=== PATIENT | male | born 2000 | race African-American/Black ===

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

== ENCOUNTER 2018-05-31 19:41 | Observation (INO) ==
--- NOTE | 2018-05-31 20:20 | ED ---
HPI General Chief complaint: Medical Clearance Stated complaint: tumor on large intestine complaint Time Seen by Provider: 05/31/18 20:04 History of Present Illness HPI narrative: Patient is a 18-year-old male who has a history apparently of an undescended testicle since there was a discussion at 1 years old whether it should be surgically corrected but apparently was not done and off and on he has had issues when it can actually come through his inguinal canal it is seems to be lodged in his inguinal canal area. Intermittent pain off and on through the years but never had surgical correction.. yesterday he went to [facility] where they did an ultrasound and a CAT scan and said the mass was large and it was pressing on the colon, they sent him to follow-up as an outpatient but not appointments for 2 months and provider on vacation.. Kira patient has a complaint of a fullness pressure-like pain in his right inguinal area.. On exam he does have only one testicle in his left scrotum area otherwise he has a lack of the other testicle which apparently is not descended and in his inguinal canal. At this time he has no nausea no vomit no diarrhea.. Accompanied by his father who worries because for 6 yrs they have been trying to have this surgically corrected. They feel that it is getting larger and causing more pain .. Related Data Home Medications Medication Instructions Recorded Confirmed No Known Home Medications 05/31/18 05/31/18 Previous Rx's Medication Instructions Recorded hydrocodone-acetaminophen 1 tab PO Q4H PRN #18 tab 06/02/18 ketorolac 10 mg PO Q6H PRN #12 tab 06/02/18 sennosides-docusate sodium [Senna 1 tab PO BID #14 tab 06/02/18 Plus] Allergies Allergy/AdvReac Type Severity Reaction Status Date / Time No Known Allergies Allergy Uncoded 11/09/16 03:25 Review of Systems ROS: all other systems reviewed are negative [facility] Medical History Medical History Patient denies medical problems (Acute) Surgical History Surgical History No history of previous surgery (Acute) Social History Social History Substance History: Active Abuse Second Hand Smoke Exposure: No Smoking Status: Never smoker How Often Do You Have a Drink Containing Alcohol: Never Recent Travel in [facility] within the Last 8 Weeks: No Recent Out of Country Travel within the Last 8 Weeks: No Substance Abuse Detail Marijuana: Substance Use Status: Active Immunization History Tetanus Immunization: Unsure Exam Narrative Exam Narrative: GENERAL: SKIN: Warm and dry. HEAD: Atraumatic. Normocephalic. EYES: Pupils equal and round. No scleral icterus. No injection or drainage. ENT: No nasal bleeding or discharge. Mucous membranes pink and moist. NECK: Trachea midline. No JVD. CARDIOVASCULAR: Regular rate and rhythm. RESPIRATORY: No accessory muscle use. Clear to auscultation. Breath sounds equal bilaterally. GASTROINTESTINAL: Abdomen soft, non-tender, nondistended. Hepatic and splenic margins not palpable. MUSCULOSKELETAL: Extremities without clubbing, cyanosis, or edema. No obvious deformities. NEUROLOGICAL: Awake and alert. No obvious cranial nerve deficits. Motor grossly within normal limits. Five out of 5 muscle strength in the arms and legs. Normal speech. left testicle normal in size and in scrotum,, right testicle absent and fullness in right inguinal canal felt with deep palpation PSYCHIATRIC: Appropriate mood and affect; insight and judgment normal. Course Initial Documented Vital Signs Temperature 97.8 F 05/31/18 19:44 Pulse Rate 101 H 05/31/18 19:44 Respiratory Rate 18 05/31/18 19:44 Blood Pressure 140/65 05/31/18 19:44 Pulse Oximetry 99 05/31/18 19:44 Last Documented Vital Signs Temperature 98.2 F 06/02/18 04:00 Pulse Rate 86 06/02/18 07:18 Respiratory Rate 16 06/02/18 07:18 Blood Pressure 120/67 06/02/18 07:18 Pulse Oximetry 99 06/02/18 07:18 Medical Decision Making [facility] Narrative Medical decision making narrative: Patient has an undescended testicle that has been in the canal for many years he had an ultrasound here back in 2014 which showed the testicle which had no flow at that time to be 0.8 cm today I do an ultrasound and it seems to be 3.1 cm so this testicle without flow seems to be growing possibility that it is a neoplasm that is now growing he has pain and fullness in the right inguinal canal I called Dr. Darling he is aware of the patient and then I admit him for intractable pain and some mild increase in his creatinine dehydration he will need a consult to decide if this is a possible that this undescended testicle could become cancerous Medical Screen Exam Complete: Yes Emergency Medical Condition: Yes Differential Diagnosis Differential Diagnosis: undescended testicle , growing tumor from testicle , infarcting pain of testicle without flow, other Lab Data Result diagrams: 06/02/18 03:30 06/02/18 03:30 Lab Results 05/31/18 05/31/18 05/31/18 Range/Units 20:40 20:40 20:40 WBC 8.0 (4.0-11.0) th/mm3 RBC 5.24 (4.50-5.90) mil/mm3 Hgb 16.9 (13.0-17.0) gm/dL Hct 47.4 (39.0-51.0) % MCV 90.3 (80.0-100.0) fL MCH 32.2 (27.0-34.0) pg MCHC 35.6 (32.0-36.0) % RDW 12.0 (11.6-17.2) % Plt Count 133 L (150-450) th/mm3 MPV 12.1 H (7.0-11.0) fL Neut % (Auto) 67.7 (16.0-70.0) % Lymph % (Auto) 24.7 (9.0-44.0) % Benton % (Auto) 6.8 (0.0-8.0) % Eos % (Auto) 0.3 (0.0-4.0) % Baso % (Auto) 0.5 (0.0-2.0) % Neut # (Auto) 5.4 (1.8-7.7) th/mm3 Lymph # (Auto) 2.0 (1.0-4.8) th/mm3 Benton # (Auto) 0.5 (0.0-0.9) th/mm3 Eos # (Auto) 0.0 (0.0-0.4) th/mm3 Baso # (Auto) 0.0 (0.0-0.2) th/mm3 WBC Differential . Differential Comment Auto diff final Smear Path Review PT 12.6 H (9.8-11.6) sec INR 1.2 Ratio Fibrinogen (227-377) mg/dL Sodium 140 (136-145) meq/L Potassium 3.7 (3.5-5.1) meq/L Chloride 104 (98-107) meq/L Carbon Dioxide 30.1 (21.0-32.0) meq/L Anion Gap 6 (5-15) meq/L BUN 18 (7-18) mg/dL Creatinine 1.49 H (0.60-1.30) mg/dL Estimated GFR 73 L (>89) mL/min Random Glucose 110 H (74-106) mg/dL Calcium 9.5 (8.5-10.1) mg/dL Iron (65-175) mcg/dL TIBC (250-450) mcg/dL % Saturation (20-50) % Ferritin (26-388) ng/mL Total Bilirubin 0.7 (0.2-1.0) mg/dL AST 13 L (15-39) U/L ALT 15 (9-52) U/L Alkaline Phosphatase 102 (45-117) U/L Lactate Dehydrogenase (87-241) U/L Total Protein 8.4 H (6.4-8.2) g/dL Albumin 4.8 (3.4-5.0) g/dL Tumor Marker HCG (0-5) mIU/mL Vitamin B12 (193-986) pg/mL Folate (3.1-17.5) ng/mL Estradiol High Sensitv (10-40) pg/mL Luteinizing Hormone (1.2-10.6) mIU/mL Total Testosterone (240-950) ng/dL Urine Color (Yellw/Straw) Urine Clarity (Clear) Urine pH (5.0-8.5) Ur Specific Vestal (1.002-1.035) Urine Protein (Neg-Trace) mg/dL Urine Glucose (UA) (Negative) mg/dL Urine Ketones (Negative) mg/dL Urine Occult Blood (Negative) Urine Nitrate (Negative) Urine Bilirubin (Negative) Urine Urobilinogen (Less than 2) mg/dL Ur Leukocyte Esterase (Negative) Urine RBC (0-3) /hpf Urine WBC (0-5) /hpf Amorphous Sediment (None) /hpf Urine Bacteria (None) /hpf Hyaline Casts (0-3) /lpf Urine Mucus (Occasional) /lpf Ur Microscopic Review Blood Type Blood Type Recheck Antibody Screen 05/31/18 05/31/18 06/01/18 Range/Units 20:40 21:00 10:30 WBC 5.8 (4.0-11.0) th/mm3 RBC 4.70 (4.50-5.90) mil/mm3 Hgb 14.9 D (13.0-17.0) gm/dL Hct 43.3 (39.0-51.0) % MCV 92.0 (80.0-100.0) fL MCH 31.7 (27.0-34.0) pg MCHC 34.5 (32.0-36.0) % RDW 12.2 (11.6-17.2) % Plt Count 108 L (150-450) th/mm3 MPV 11.1 H (7.0-11.0) fL Neut % (Auto) (16.0-70.0) % Lymph % (Auto) (9.0-44.0) % Benton % (Auto) (0.0-8.0) % Eos % (Auto) (0.0-4.0) % Baso % (Auto) (0.0-2.0) % Neut # (Auto) (1.8-7.7) th/mm3 Lymph # (Auto) (1.0-4.8) th/mm3 Benton # (Auto) (0.0-0.9) th/mm3 Eos # (Auto) (0.0-0.4) th/mm3 Baso # (Auto) (0.0-0.2) th/mm3 WBC Differential Differential Comment Smear Path Review PT (9.8-11.6) sec INR Ratio Fibrinogen (227-377) mg/dL Sodium (136-145) meq/L Potassium (3.5-5.1) meq/L Chloride (98-107) meq/L Carbon Dioxide (21.0-32.0) meq/L Anion Gap (5-15) meq/L BUN (7-18) mg/dL Creatinine (0.60-1.30) mg/dL Estimated GFR (>89) mL/min Random Glucose (74-106) mg/dL Calcium (8.5-10.1) mg/dL Iron (65-175) mcg/dL TIBC (250-450) mcg/dL % Saturation (20-50) % Ferritin (26-388) ng/mL Total Bilirubin (0.2-1.0) mg/dL AST (15-39) U/L ALT (9-52) U/L Alkaline Phosphatase (45-117) U/L Lactate Dehydrogenase (87-241) U/L Total Protein (6.4-8.2) g/dL Albumin (3.4-5.0) g/dL Tumor Marker HCG (0-5) mIU/mL Vitamin B12 (193-986) pg/mL Folate (3.1-17.5) ng/mL Estradiol High Sensitv (10-40) pg/mL Luteinizing Hormone (1.2-10.6) mIU/mL Total Testosterone (240-950) ng/dL Urine Color Yellow (Yellw/Straw) Urine Clarity Hazy H (Clear) Urine pH 7.0 (5.0-8.5) Ur Specific Vestal 1.027 (1.002-1.035) Urine Protein 100 H (Neg-Trace) mg/dL Urine Glucose (UA) 50 (Negative) mg/dL Urine Ketones Trace H (Negative) mg/dL Urine Occult Blood Negative (Negative) Urine Nitrate Negative (Negative) Urine Bilirubin Negative (Negative) Urine Urobilinogen 4 or greater (Less than 2) mg/dL Ur Leukocyte Esterase Negative (Negative) Urine RBC 1 (0-3) /hpf Urine WBC 2 (0-5) /hpf Amorphous Sediment Rare H (None) /hpf Urine Bacteria Moderate H (None) /hpf Hyaline Casts 1 (0-3) /lpf Urine Mucus Few H (Occasional) /lpf Ur Microscopic Review Not Reportable Blood Type B Positive Blood Type Recheck Required Antibody Screen Negative 06/01/18 06/01/18 06/01/18 Range/Units 10:30 13:49 13:49 WBC (4.0-11.0) th/mm3 RBC (4.50-5.90) mil/mm3 Hgb (13.0-17.0) gm/dL Hct (39.0-51.0) % MCV (80.0-100.0) fL MCH (27.0-34.0) pg MCHC (32.0-36.0) % RDW (11.6-17.2) % Plt Count (150-450) th/mm3 MPV (7.0-11.0) fL Neut % (Auto) (16.0-70.0) % Lymph % (Auto) (9.0-44.0) % Benton % (Auto) (0.0-8.0) % Eos % (Auto) (0.0-4.0) % Baso % (Auto) (0.0-2.0) % Neut # (Auto) (1.8-7.7) th/mm3 Lymph # (Auto) (1.0-4.8) th/mm3 Benton # (Auto) (0.0-0.9) th/mm3 Eos # (Auto) (0.0-0.4) th/mm3 Baso # (Auto) (0.0-0.2) th/mm3 WBC Differential Differential Comment Smear Path Review PT (9.8-11.6) sec INR Ratio Fibrinogen (227-377) mg/dL Sodium 141 (136-145) meq/L Potassium 3.8 (3.5-5.1) meq/L Chloride 109 H (98-107) meq/L Carbon Dioxide 26.6 (21.0-32.0) meq/L Anion Gap 5 (5-15) meq/L BUN 12 (7-18) mg/dL Creatinine 1.04 (0.60-1.30) mg/dL Estimated GFR Greater than 89 (>89) mL/min Random Glucose 84 (74-106) mg/dL Calcium 8.4 L D (8.5-10.1) mg/dL Iron (65-175) mcg/dL TIBC (250-450) mcg/dL % Saturation (20-50) % Ferritin (26-388) ng/mL Total Bilirubin (0.2-1.0) mg/dL AST (15-39) U/L ALT (9-52) U/L Alkaline Phosphatase (45-117) U/L Lactate Dehydrogenase (87-241) U/L Total Protein (6.4-8.2) g/dL Albumin (3.4-5.0) g/dL Tumor Marker HCG Less than 1 (0-5) mIU/mL Vitamin B12 (193-986) pg/mL Folate (3.1-17.5) ng/mL Estradiol High Sensitv 21 (10-40) pg/mL Luteinizing Hormone 2.2 (1.2-10.6) mIU/mL Total Testosterone 332 (240-950) ng/dL Urine Color (Yellw/Straw) Urine Clarity (Clear) Urine pH (5.0-8.5) Ur Specific Vestal (1.002-1.035) Urine Protein (Neg-Trace) mg/dL Urine Glucose (UA) (Negative) mg/dL Urine Ketones (Negative) mg/dL Urine Occult Blood (Negative) Urine Nitrate (Negative) Urine Bilirubin (Negative) Urine Urobilinogen (Less than 2) mg/dL Ur Leukocyte Esterase (Negative) Urine RBC (0-3) /hpf Urine WBC (0-5) /hpf Amorphous Sediment (None) /hpf Urine Bacteria (None) /hpf Hyaline Casts (0-3) /lpf Urine Mucus (Occasional) /lpf Ur Microscopic Review Blood Type Blood Type Recheck Antibody Screen 06/01/18 06/01/18 06/01/18 Range/Units 13:49 13:49 13:49 WBC (4.0-11.0) th/mm3 RBC (4.50-5.90) mil/mm3 Hgb (13.0-17.0) gm/dL Hct (39.0-51.0) % MCV (80.0-100.0) fL MCH (27.0-34.0) pg MCHC (32.0-36.0) % RDW (11.6-17.2) % Plt Count (150-450) th/mm3 MPV (7.0-11.0) fL Neut % (Auto) (16.0-70.0) % Lymph % (Auto) (9.0-44.0) % Benton % (Auto) (0.0-8.0) % Eos % (Auto) (0.0-4.0) % Baso % (Auto) (0.0-2.0) % Neut # (Auto) (1.8-7.7) th/mm3 Lymph # (Auto) (1.0-4.8) th/mm3 Benton # (Auto) (0.0-0.9) th/mm3 Eos # (Auto) (0.0-0.4) th/mm3 Baso # (Auto) (0.0-0.2) th/mm3 WBC Differential Differential Comment Smear Path Review PT (9.8-11.6) sec INR Ratio Fibrinogen 136 L (227-377) mg/dL Sodium (136-145) meq/L Potassium (3.5-5.1) meq/L Chloride (98-107) meq/L Carbon Dioxide (21.0-32.0) meq/L Anion Gap (5-15) meq/L BUN (7-18) mg/dL Creatinine (0.60-1.30) mg/dL Estimated GFR (>89) mL/min Random Glucose (74-106) mg/dL Calcium (8.5-10.1) mg/dL Iron 129 (65-175) mcg/dL TIBC 265 (250-450) mcg/dL % Saturation 48.8 (20-50) % Ferritin 44 (26-388) ng/mL Total Bilirubin (0.2-1.0) mg/dL AST (15-39) U/L ALT (9-52) U/L Alkaline Phosphatase (45-117) U/L Lactate Dehydrogenase 159 (87-241) U/L Total Protein (6.4-8.2) g/dL Albumin (3.4-5.0) g/dL Tumor Marker HCG (0-5) mIU/mL Vitamin B12 411 (193-986) pg/mL Folate 9.9 (3.1-17.5) ng/mL Estradiol High Sensitv (10-40) pg/mL Luteinizing Hormone (1.2-10.6) mIU/mL Total Testosterone (240-950) ng/dL Urine Color (Yellw/Straw) Urine Clarity (Clear) Urine pH (5.0-8.5) Ur Specific Vestal (1.002-1.035) Urine Protein (Neg-Trace) mg/dL Urine Glucose (UA) (Negative) mg/dL Urine Ketones (Negative) mg/dL Urine Occult Blood (Negative) Urine Nitrate (Negative) Urine Bilirubin (Negative) Urine Urobilinogen (Less than 2) mg/dL Ur Leukocyte Esterase (Negative) Urine RBC (0-3) /hpf Urine WBC (0-5) /hpf Amorphous Sediment (None) /hpf Urine Bacteria (None) /hpf Hyaline Casts (0-3) /lpf Urine Mucus (Occasional) /lpf Ur Microscopic Review Blood Type Blood Type Recheck Antibody Screen 06/02/18 06/02/18 Range/Units 03:30 03:30 WBC 7.0 (4.0-11.0) th/mm3 RBC 4.73 (4.50-5.90) mil/mm3 Hgb 15.1 (13.0-17.0) gm/dL Hct 43.3 (39.0-51.0) % MCV 91.5 (80.0-100.0) fL MCH 31.9 (27.0-34.0) pg MCHC 34.9 (32.0-36.0) % RDW 12.3 (11.6-17.2) % Plt Count 107 L (150-450) th/mm3 MPV 11.5 H (7.0-11.0) fL Neut % (Auto) 53.8 (16.0-70.0) % Lymph % (Auto) 37.3 (9.0-44.0) % Benton % (Auto) 6.6 (0.0-8.0) % Eos % (Auto) 1.8 (0.0-4.0) % Baso % (Auto) 0.5 (0.0-2.0) % Neut # (Auto) 3.8 (1.8-7.7) th/mm3 Lymph # (Auto) 2.6 (1.0-4.8) th/mm3 Benton # (Auto) 0.5 (0.0-0.9) th/mm3 Eos # (Auto) 0.1 (0.0-0.4) th/mm3 Baso # (Auto) 0.0 (0.0-0.2) th/mm3 WBC Differential . Differential Comment Auto diff final Smear Path Review PT (9.8-11.6) sec INR Ratio Fibrinogen (227-377) mg/dL Sodium 141 (136-145) meq/L Potassium 3.8 (3.5-5.1) meq/L Chloride 106 (98-107) meq/L Carbon Dioxide 28.6 (21.0-32.0) meq/L Anion Gap 6 (5-15) meq/L BUN 11 (7-18) mg/dL Creatinine 1.14 (0.60-1.30) mg/dL Estimated GFR Greater than 89 (>89) mL/min Random Glucose 81 (74-106) mg/dL Calcium 8.8 (8.5-10.1) mg/dL Iron (65-175) mcg/dL TIBC (250-450) mcg/dL % Saturation (20-50) % Ferritin (26-388) ng/mL Total Bilirubin 0.5 (0.2-1.0) mg/dL AST 10 L (15-39) U/L ALT 14 (9-52) U/L Alkaline Phosphatase 88 (45-117) U/L Lactate Dehydrogenase (87-241) U/L Total Protein 6.8 D (6.4-8.2) g/dL Albumin 4.0 D (3.4-5.0) g/dL Tumor Marker HCG (0-5) mIU/mL Vitamin B12 (193-986) pg/mL Folate (3.1-17.5) ng/mL Estradiol High Sensitv (10-40) pg/mL Luteinizing Hormone (1.2-10.6) mIU/mL Total Testosterone (240-950) ng/dL Urine Color (Yellw/Straw) Urine Clarity (Clear) Urine pH (5.0-8.5) Ur Specific Vestal (1.002-1.035) Urine Protein (Neg-Trace) mg/dL Urine Glucose (UA) (Negative) mg/dL Urine Ketones (Negative) mg/dL Urine Occult Blood (Negative) Urine Nitrate (Negative) Urine Bilirubin (Negative) Urine Urobilinogen (Less than 2) mg/dL Ur Leukocyte Esterase (Negative) Urine RBC (0-3) /hpf Urine WBC (0-5) /hpf Amorphous Sediment (None) /hpf Urine Bacteria (None) /hpf Hyaline Casts (0-3) /lpf Urine Mucus (Occasional) /lpf Ur Microscopic Review Blood Type Blood Type Recheck Antibody Screen Imaging Data Radiologist's impression: Scrotum Ultrasound 05/31/18 20:36 CONCLUSION: 1. Undescended right testicle identified in the right inguinal canal with markedly decreased color Doppler flow. The finding of decrease to no color Doppler flow is age-indeterminate. 2. Small varicocele noted on the left. Abdomen/Pelvis CT 05/31/18 22:43 CONCLUSION: 1. No acute findings. Normal CT appearance of the appendix. 2. Undescended right testicle present in the right inguinal canal. Left-sided varicocele. Discharge Plan Discharge Disposition Patient Disposition: Discharge Home Discharge Condition Condition: Stable Discharge Order Discharge Orders: Discharge Order (Routine); Ordered 06/02/18 Ordered By: Amanda Birmingham Discharge Details Anticipated Discharge Date: 06/02/18 Physicians Team ED Provider: Kian Byrnes Primary Care Provider: Primary Alka Harris Attending Provider: Amanda Birmingham Other Providers: Joshua Rincon ; Shivam Garcia Status ED Status: Left Department Discharge Information Discharge Date/Time: 06/01/18 02:31
[2018-05-31 20:57] LABS: Baso % (Auto) 0.5 % (0.0-2.0); Eos % (Auto) 0.3 % (0.0-4.0); Hematocrit 47.4 % (39.0-51.0); Hemoglobin 16.9 gm/dL (13.0-17.0); Lymph % (Auto) 24.7 % (9.0-44.0); Mean Corpuscular HGB Conc 35.6 % (32.0-36.0); Mean Corpuscular Hemoglobin 32.2 pg (27.0-34.0); Mean Corpuscular Volume 90.3 fL (80.0-100.0); Mean Platelet Volume 12.1 fL (7.0-11.0); Mono # (Auto) 0.5 th/mm3 (0.0-0.9); Mono % (Auto) 6.8 % (0.0-8.0); Neut # (Auto) 5.4 th/mm3 (1.8-7.7); Neut % (Auto) 67.7 % (16.0-70.0); Platelet Count 133 th/mm3 (150-450); Red Blood Count 5.24 mil/mm3 (4.50-5.90)
[2018-05-31 21:12] LABS: INR 1.2 Ratio; Prothrombin Time 12.6 sec (9.8-11.6)
[2018-05-31 21:15] LABS: Alanine Aminotransferase 15 U/L (9-52); Albumin 4.8 g/dL (3.4-5.0); Anion Gap 6 meq/L (5-15); Aspartate Aminotransferase 13 U/L (15-39); Blood Urea Nitrogen 18 mg/dL (7-18); Calcium 9.5 mg/dL (8.5-10.1); Carbon Dioxide 30.1 meq/L (21.0-32.0); Chloride 104 meq/L (98-107); Glomerular Filtration Rate 73 mL/min (>89); Glucose,Random 110 mg/dL (74-106); Potassium 3.7 meq/L (3.5-5.1); Sodium 140 meq/L (136-145)
[2018-05-31 21:18] LABS: Alkaline Phosphatase 102 U/L (45-117); Total Protein 8.4 g/dL (6.4-8.2)
--- NOTE | 2018-05-31 21:29 | US ---
EXAM DATE: 05/31/2018 8:36 PM EDT AGE/SEX: 18 years / Male INDICATIONS: Testicular pain. CLINICAL DATA: This is the patient's initial encounter. Patient reports that signs and symptoms have been present for > 1 year and indicates a pain score of 3/10. MEDICAL/SURGICAL HISTORY: . Testicular pain. None. [place] [facility] [place]. . MEASUREMENTS: Right Testicle:__. Not visualized. Left Testicle:__4.3 x 3.5 x 1.3 cm FINDINGS: RIGHT: Testicle: The testicle appears to be undescended or retracted into the right inguinal canal. It is he terogeneous with markedly decreased internal color Doppler flow. Epididymis: Not visualized. Hydrocele: No hydrocele. Varicocele: No evidence of varicocele. LEFT: Testicle: Homogeneous echotexture without intra or extratesticular mass. Blood flow is symmetric and within normal limits. Epididymis: Within normal limits. Hydrocele: No hydrocele. Varicocele: Small varicocele with increased flow on valsalva. Scrotum: Within normal limits. CONCLUSION: 1. Undescended right testicle identified in the right inguinal canal with markedly decreased color D oppler flow. The finding of decrease to no color Doppler flow is age-indeterminate. 2. Small varicocele noted on the left. Electronically signed by: Lino Chatman MD 05/31/2018 9:28 PM EDT
[2018-05-31 21:52] LABS: Amorphous Sediment,Urine Rare /hpf; Bacteria,Urine Moderate /hpf; Bilirubin,Urine Negative (Negative); Clarity,Urine Hazy (Clear); Color,Urine Yellow (Yellw/Straw); Glucose,Urine (UA) 50 mg/dL (Negative); Hyaline Casts,Urine 1 /lpf (0-3); Leukocyte Esterase,Urine Negative (Negative); Mucus,Urine Few /lpf (Occasional); Nitrite,Urine Negative (Negative); Specific Gravity,Urine 1.027 (1.002-1.035); Urobilinogen,Urine 4 or Greater mg/dL (Less than 2)
[2018-05-31] MEDS ORDERED: Sod Chloride 0.9% Inj 1,000 ML IV.SIG ONE ×2 (21:55→22:44)
--- NOTE | 2018-05-31 23:51 | CT ---
EXAM DATE: 05/31/2018 10:52 PM EDT AGE/SEX: 18 years / Male INDICATIONS: Right lower quadrant pain. History of undescended testicle. Evaluate for mass. CLINICAL DATA: This is the patient's initial encounter. Patient reports that signs and symptoms have been present for 3 days and indicates a pain score of 5/10. MEDICAL/SURGICAL HISTORY: None. None. ORAL CONTRAST: No oral contrast ingested. RADIATION DOSE: 4.52 CTDI (mGy) COMPARISON: No prior exams available for comparison. TECHNIQUE: Multiple contiguous axial images were obtained through the abdomen and pelvis following b olus infusion of 75 ml Omnipaque 350 (iohexol) nonionic water-soluble contrast as a single exam dos e. No oral contrast ingested. Using automated exposure control and adjustment of the mA and/or kV ac cording to patient size, radiation dose was kept as low as reasonably achievable to obtain optimal di agnostic quality images. DICOM format image data is available electronically for review and comparis on. FINDINGS: Lung bases are clear. No acute findings in the liver, spleen, adrenals, kidneys or pancreas. No free fluid. No bowel obstruction. No adenopathy. No acute bony abnormalities. There is an undescended testicle on the right inguinal canal measuring about 2.9 cm in diameter. Left -sided varicocele is present. Appendix appears normal in CT. CONCLUSION: 1. No acute findings. Normal CT appearance of the appendix. 2. Undescended right testicle present in the right inguinal canal. Left-sided varicocele. Electronically signed by: Gonzalez Patel MD 05/31/2018 11:50 PM EDT
[2018-06-01] MEDS ORDERED: Morphine Inj 4 MG/ML Vial IV.PUSH PRN (01:05)
[2018-06-01] MEDS ORDERED: Bisacodyl 10 MG Supp RECTAL PRN (01:06)
[2018-06-01] MEDS ORDERED: Acetaminophen 325 MG Tablet PO PRN (01:06)
--- NOTE | 2018-06-01 01:22 | P.HPIM ---
History of Present Illness Primary Care Physician: No Primary Care Physician History of Present Illness: This is a 18-year-old male with PMH Undescended Testes who presented to the ER with complaints of abdominal pain. States he was seen at [facility] yesterday for similar complaints, had CT Abdomen/Pelvis and Abdominal US showing "mass on the intestines". Per father at bedside, they were told the surgeon was on vacation for 2wks, and decided to come here for further evaluation. Father reports pt has been evaluated for surgery for undescended testes since the age of 12yrs, however no surgical intervention done. Pt reports intermittent abdominal pain for several years, now progressively worse over the last 1wk. Pain is sharp, moderate-severe, 7-8/10, non-radiating. Denies fever or chills. On arrival, BP 140/65, HR 101, O2 sat 99% on RA, Afebrile. CBC unremarkable except for platelets 133, no previous labs for comparison. Creatinine 1.49. INR 1.2. UA negative for UTI. Scrotal US undescended right testicle and right inguinal canal with markedly decreased color Doppler flow. CT Abdomen/Pelvis no acute findings, normal appendix, undescended right testicle and right inguinal canal, left varicocele. - Diagnosis (1) KEV (acute kidney injury) (2) Undescended testes (3) Thrombocytopenia (4) Intractable pain Review of Systems PAST FAMILY HISTORY: Reviewed. No h/o DM or CAD All other systems reviewed negative except as stated in HPI PMFSH - History History Provided By: Patient - Medical History Medical History: Medical History (Last Updated 05/31/18 @ 19:46 by Kierra Castelan) Patient denies medical problems - Surgical History Surgical History: Surgical History (Last Updated 05/31/18 @ 19:46 by Kierra Castelan) No history of previous surgery - Tobacco History Smoking Status: Never smoker - Alcohol History How Often Do You Have a Drink Containing Alcohol: Never - Substance Use History Substance History: Active Abuse - Substance Use Type Marijuana Status: Active - Travel History Recent Travel in the [place] Within the Last 8 Weeks: No Recent Travel Out of the Country Within the Last 8 Weeks: No - Immunization History Tetanus Immunization: Unsure Medications and Allergies Active Medications: Active Medications Acetaminophen (Tylenol) 650 mg PO Q4H PRN PRN Reason: Temp > 100.4 Hydrocodone Bitart/Acetaminophen (Onida 5/325) 1 tab PO Q4H PRN PRN Reason: PAIN 3-5 Al Hydroxide/Mg Hydroxide (Milk Of Magnesia Liq) 30 ml PO Q12H PRN PRN Reason: Mild Constipation Bisacodyl (Dulcolax Supp) 10 mg RECTAL DAILY PRN PRN Reason: SEVERE CONSITIPATION Sodium Chloride (Ns Inj) 1,000 mls @ 100 mls/hr IV.CONT .Q10H BILLIE Lactulose (Lactulose Liq) 30 ml PO DAILY PRN PRN Reason: SEVERE CONSITIPATION Morphine Sulfate (Morphine Inj) 2 mg IV.PUSH Q4H PRN PRN Reason: PAIN 6-10 Ondansetron HCl (Zofran Inj) 4 mg IV.PUSH Q6H PRN PRN Reason: NAUSEA OR VOMITING Senna/Docusate Sodium (Joan-Colace) 1 tab PO BID BILLIE Sennosides (Senokot) 17.2 mg PO Q12H PRN PRN Reason: Moderate Constipation Allergies Allergy/AdvReac Type Severity Reaction Status Date / Time No Known Allergies Allergy Uncoded 11/09/16 03:25 Home Medications Medication Instructions Recorded Confirmed Type No Known Home Medications 05/31/18 05/31/18 History Exam Vital signs: Vital Signs 05/31/18 19:44 05/31/18 20:04 06/01/18 01:06 Temperature 97.8 F 98.2 F Pulse Rate 101 H 103 H 94 H Respiratory Rate 18 18 16 Blood Pressure 140/65 141/75 H 138/74 Pulse Oximetry 99 99 97 Intake & Output 05/31/18 05/31/18 06/01/18 06:59 18:59 06:59 Intake Total 1999 Balance 1999 Weight 61.235 kg Intake: IV 1999 NS Inj 1,000 ML @ Wide Open IV. 1999 SIG BOLUS ONE Rx#:[id number] Narrative: PE: GENERAL: Young black male in no acute distress. Family at bedside. SKIN: Focused skin assessment warm and dry. HEENT: PERRLA, EOMI. No scleral icterus or conjunctival pallor. No lid lag or facial droop. CARDIOVASCULAR: Regular rate and rhythm. No obvious murmurs to auscultation. No chest tenderness to palpation. RESPIRATORY: No obvious rhonchi or wheezing. Clear to auscultation. Breath sounds equal bilaterally. GASTROINTESTINAL: Abdomen soft, non-tender, nondistended. BS normal. MUSCULOSKELETAL: Extremities without clubbing, cyanosis, or edema. No obvious deformities. NEUROLOGICAL: Awake, alert and oriented x4. No focal neurologic deficits. Moving both upper and lower extremities spontaneously. PSYCHIATRIC: Appropriate mood and affect. Insight and judgment normal. Results - Labs CBC & Chem 7: 05/31/18 20:40 05/31/18 20:40 Labs: Short CBC 05/31/18 Range/Units 20:40 WBC 8.0 (4.0-11.0) th/mm3 Hgb 16.9 (13.0-17.0) gm/dL Hct 47.4 (39.0-51.0) % Plt Count 133 L (150-450) th/mm3 BMP 05/31/18 20:40 Sodium 140 Potassium 3.7 Chloride 104 Carbon Dioxide 30.1 BUN 18 Creatinine 1.49 H Calcium 9.5 Liver Function 05/31/18 Range/Units 20:40 Total Bilirubin 0.7 (0.2-1.0) mg/dL AST 13 L (15-39) U/L ALT 15 (9-52) U/L Alkaline Phosphatase 102 (45-117) U/L Albumin 4.8 (3.4-5.0) g/dL Urine 05/31/18 Range/Units 21:00 Urine Color Yellow (Yellw/Straw) Urine Clarity Hazy H (Clear) Urine pH 7.0 (5.0-8.5) Ur Specific [place] 1.027 (1.002-1.035) Urine Protein 100 H (Neg-Trace) mg/dL Urine Glucose (UA) 50 (Negative) mg/dL - Imaging Impressions Scrotum Ultrasound 05/31/18 20:36 CONCLUSION: 1. Undescended right testicle identified in the right inguinal canal with markedly decreased color Doppler flow. The finding of decrease to no color Doppler flow is age-indeterminate. 2. Small varicocele noted on the left. Abdomen/Pelvis CT 05/31/18 22:43 CONCLUSION: 1. No acute findings. Normal CT appearance of the appendix. 2. Undescended right testicle present in the right inguinal canal. Left-sided varicocele. Caprini VTE Risk Assessment Caprini VTE Risk Assessment: No/Low Risk (score <= 1) Caprini Risk Assessment Model: Point Value = 1 Point Value = 2 Point Value = 3 Point Value = 5 Age 41-60 Minor surgery BMI > 25 kg/m2 Swollen legs Varicose veins or History of unexplained or recurrent spontaneous Oral contraceptives or hormone replacement Sepsis (< 1 month) Serious lung disease, including pneumonia (< 1 month) Abnormal pulmonary function Acute myocardial infarction Congestive heart failure (< 1 month) History of inflammatory bowel disease Medical patient at bed rest Age 61-74 Arthroscopic surgery Major open surgery (> 45 min) Laparoscopic surgery (> 45 min) Malignancy Confined to bed (> 72 hours) Immobilizing plaster cast Central venous access Age >= 75 History of VTE Family history of VTE Factor V Leiden Prothrombin [id number] Lupus anticoagulant Anticardiolipin antibodies Elevated serum homocysteine Heparin-induced thrombocytopenia Other congenital or acquired thrombophilia Stroke (< 1 month) Elective arthroplasty Hip, pelvis, or leg fracture Acute spinal cord injury (< 1 month) Prophylaxis Regimen: Total Risk Factor Score Risk Level Prophylaxis Regimen 0-1 Low Early ambulation 2 Moderate Order ONE of the following: *Sequential Compression Device (SCD) *Heparin 5000 units SQ BID 3-4 Higher Order ONE of the following medications: *Heparin 5000 units SQ TID *Enoxaparin/Lovenox 40 mg SQ daily (WT < 150 kg, CrCl > 30 mL/min) *Enoxaparin/Lovenox 30 mg SQ daily (WT < 150 kg, CrCl > 10-29 mL/min) *Enoxaparin/Lovenox 30 mg SQ BID (WT < 150 kg, CrCl > 30 mL/min) AND/OR *Sequential Compression Device (SCD) 5 or more Highest Order ONE of the following medications: *Heparin 5000 units SQ TID (Preferred with Epidurals) *Enoxaparin/Lovenox 40 mg SQ daily (WT < 150 kg, CrCl > 30 mL/min) *Enoxaparin/Lovenox 30 mg SQ daily (WT < 150 kg, CrCl > 10-29 mL/min) *Enoxaparin/Lovenox 30 mg SQ BID (WT < 150 kg, CrCl > 30 mL/min) AND *Sequential Compression Device (SCD) Assessment and Plan - Assessment (1) KEV (acute kidney injury) Code(s): N17.9 - Acute kidney failure, unspecified Status: Acute (2) Undescended testes Code(s): Q53.9 - Undescended testicle, unspecified Status: Acute (3) Thrombocytopenia Code(s): D69.6 - Thrombocytopenia, unspecified Status: Acute (4) Intractable pain Code(s): R52 - Pain, unspecified Status: Acute - Plan A/P: 1. Undescended Testes: w/ associated abdominal pain, seen at [facility] yesterday and referred for outpatient eval, however surgeon unavailable for several weeks, presented here for ongoing pain complaints. CT Abd/Pelvis w/ no acute findings except right undescended testicle in inguinal region, Scrotal US w/ similar findings. Consult Urology for further evaluation/intervention. 2. Intractable Pain: Secondary to above, continue w/ analgesics/antiemetics 3. KEV: Creatinine 1.49, no previous labs for comparison, IVF for hydration, repeat labs in am, monitor I/O, U/a negative for UTI. 4. Thrombocytopenia: Platelets 133, no previous labs for comparison, no active bleeding, will monitor, repeat labs in am. 5. DVT Prophylaxis: SCD/Teds 6. Social work for d/c planning as needed 7. Case discussed w/ ER physician at length, labs/records/imaging reviewed by me.
[2018-06-01] MEDS: Sod Chloride 0.9% Inj 1,000 ML IV.CONT SCH ×3 (04:57→23:30)
[2018-06-01] MEDS: Senna/Docusate Sodium 8.6/50 MG Tablet PO SCH ×2 (08:06→20:48)
--- NOTE | 2018-06-01 10:10 | P.PN ---
Subjective Interval history: Pt seen and examined for f/u abdominal pain and undescended right testis. The patient continues to have right flank and RLQ abdominal pain. He denies nausea or vomiting but endorses diarrhea. He states this has happened multiple times where he is hospitalized for pain but nothing is done about his undescended testicle. Spoke with patient's mother on the phone (who is hospitalized in another county currently) who is very concerned about the outcome of her son's diagnosis. She states this has been a recurrent velasquez for at least the past six years where he has had hospital stays for intractable pain, is sent out on pain meds, and advised to f/u with urology as an outpatient. Unfortunately, the patient doesn' t have insurance so they are never able to f/u as an outpatient. Apparently when he was a child and insured he was evaluated by [facility] but at the time the MD had wanted a second opinion. The patient and his family are very concerned that he has testicular cancer. The patient reports in the last several months he has had left sided gynecomastia with a palpable lump. Furthermore, the patient's father's twin has a history of testicular cancer. His mother is extremely nervous the patient is going to get lost in the system. Physical Exam Vital signs: Vital Signs 05/31/18 19:44 05/31/18 20:04 06/01/18 01:06 Temperature 97.8 F 98.2 F Pulse Rate 101 H 103 H 94 H Respiratory Rate 18 18 16 Blood Pressure 140/65 141/75 H 138/74 Pulse Oximetry 99 99 97 06/01/18 07:42 Temperature 97.6 F Pulse Rate 68 Respiratory Rate 16 Blood Pressure 113/64 Pulse Oximetry 97 Intake & Output 05/31/18 06/01/18 06/01/18 18:59 06:59 18:59 Intake Total 1999 Balance 1999 Weight 61.23 kg Intake: IV 1999 NS Inj 1,000 ML @ Wide Open IV. 1999 SIG BOLUS ONE Rx#:[id number] Other: # Urine Diapers 1 Date of Last Bowel Movement 05/31/18 Weight On Admission 61.23 kg Narrative: GENERAL: WN, WD male resting in bed in NAD. SKIN: Warm and dry. HEENT: AT/NC. Pupils equal and round. MMM. NECK: Supple no tender LAD or JVD. CHEST: Left nipple with firm ~1.5 cm, nontender nodule with no overlying erythema. Right nipple unremarkable. HEART: RRR no m/r/g. LUNGS: CTAB without wheezes or crackles. ABDOMEN: +BS, soft, RLQ and right flank TTP. EXTREMITIES: No LE edema. NEURO: Awake and alert. Results - Labs CBC & Chem 7: 06/01/18 10:30 06/01/18 10:30 Laboratory Results - last 24 hr 05/31/18 05/31/18 05/31/18 20:40 20:40 20:40 WBC 8.0 RBC 5.24 Hgb 16.9 Hct 47.4 MCV 90.3 MCH 32.2 MCHC 35.6 RDW 12.0 Plt Count 133 L MPV 12.1 H Neut % (Auto) 67.7 Lymph % (Auto) 24.7 Dewitt % (Auto) 6.8 Eos % (Auto) 0.3 Baso % (Auto) 0.5 Neut # (Auto) 5.4 Lymph # (Auto) 2.0 Dewitt # (Auto) 0.5 Eos # (Auto) 0.0 Baso # (Auto) 0.0 WBC Differential . Differential Comment Auto diff final PT 12.6 H INR 1.2 Sodium 140 Potassium 3.7 Chloride 104 Carbon Dioxide 30.1 Anion Gap 6 BUN 18 Creatinine 1.49 H Estimated GFR 73 L Random Glucose 110 H Calcium 9.5 Total Bilirubin 0.7 AST 13 L ALT 15 Alkaline Phosphatase 102 Total Protein 8.4 H Albumin 4.8 Urine Color Urine Clarity Urine pH Ur Specific [place] Urine Protein Urine Glucose (UA) Urine Ketones Urine Occult Blood Urine Nitrate Urine Bilirubin Urine Urobilinogen Ur Leukocyte Esterase Urine RBC Urine WBC Amorphous Sediment Urine Bacteria Hyaline Casts Urine Mucus Ur Microscopic Review Blood Type Blood Type Recheck Antibody Screen 05/31/18 05/31/18 20:40 21:00 WBC RBC Hgb Hct MCV MCH MCHC RDW Plt Count MPV Neut % (Auto) Lymph % (Auto) Dewitt % (Auto) Eos % (Auto) Baso % (Auto) Neut # (Auto) Lymph # (Auto) Dewitt # (Auto) Eos # (Auto) Baso # (Auto) WBC Differential Differential Comment PT INR Sodium Potassium Chloride Carbon Dioxide Anion Gap BUN Creatinine Estimated GFR Random Glucose Calcium Total Bilirubin AST ALT Alkaline Phosphatase Total Protein Albumin Urine Color Yellow Urine Clarity Hazy H Urine pH 7.0 Ur Specific [place] 1.027 Urine Protein 100 H Urine Glucose (UA) 50 Urine Ketones Trace H Urine Occult Blood Negative Urine Nitrate Negative Urine Bilirubin Negative Urine Urobilinogen 4 or greater Ur Leukocyte Esterase Negative Urine RBC 1 Urine WBC 2 Amorphous Sediment Rare H Urine Bacteria Moderate H Hyaline Casts 1 Urine Mucus Few H Ur Microscopic Review Not Reportable Blood Type B Positive Blood Type Recheck Required Antibody Screen Negative - Imaging Impressions Scrotum Ultrasound 05/31/18 20:36 CONCLUSION: 1. Undescended right testicle identified in the right inguinal canal with markedly decreased color Doppler flow. The finding of decrease to no color Doppler flow is age-indeterminate. 2. Small varicocele noted on the left. Abdomen/Pelvis CT 05/31/18 22:43 CONCLUSION: 1. No acute findings. Normal CT appearance of the appendix. 2. Undescended right testicle present in the right inguinal canal. Left-sided varicocele. Assessment and Plan - Assessment (1) KEV (acute kidney injury) Code(s): N17.9 - Acute kidney failure, unspecified Status: Acute (2) Undescended testes Code(s): Q53.9 - Undescended testicle, unspecified Status: Acute (3) Thrombocytopenia Code(s): D69.6 - Thrombocytopenia, unspecified Status: Acute (4) Intractable pain Code(s): R52 - Pain, unspecified Status: Acute - Plan 18 year old male with history of undescended testes admitted overnight for evaluation of abdominal pain. He had been seen at [facility] prior to coming to [place] but was told the urologist was on vacation. 1. Undescended testis with abdominal pain - Does not have insurance or follow with a urologist - CT A/P with no acute findings except right undescended testicle in inguinal region and left-sided varicocele - Scrotal U/S with similar findings and markedly decreased color Doppler flow in the right - The patient has had a [place] ER visit almost once a year since 2012 for this - Urology consulted - Pain control - Antiemetics 2. KEV - resolved - Creatinine 1.49 on admission, down to 1.04 this morning - Continue IVF - Monitor I/Os - U/A negative for UTI 3. Thrombocytopenia - PLT 133 on admission down to 108 - No active bleeding - Monitor CBC - Consult hematology for further eval 4. 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 Will obtain HCG, LH , estradiol, and testosterone levels DVT prophylaxis: low-risk, encourage ambulation Discharge Planning: Pending further clinical work-up and urologic eval
[2018-06-01 11:35] LABS: Hematocrit 43.3 % (39.0-51.0); Hemoglobin 14.9 gm/dL (13.0-17.0); Mean Corpuscular HGB Conc 34.5 % (32.0-36.0); Mean Corpuscular Hemoglobin 31.7 pg (27.0-34.0); Mean Platelet Volume 11.1 fL (7.0-11.0); Platelet Count 108 th/mm3 (150-450); Red Cell Distribution Width 12.2 % (11.6-17.2); White Blood Count 5.8 th/mm3 (4.0-11.0)
[2018-06-01 12:08] LABS: Anion Gap 5 meq/L (5-15); Blood Urea Nitrogen 12 mg/dL (7-18); Calcium 8.4 mg/dL (8.5-10.1); Carbon Dioxide 26.6 meq/L (21.0-32.0); Chloride 109 meq/L (98-107); Glomerular Filtration Rate Greater Than 89 mL/min (>89); Glucose,Random 84 mg/dL (74-106); Potassium 3.8 meq/L (3.5-5.1); Sodium 141 meq/L (136-145)
--- NOTE | 2018-06-01 16:14 | MB ---
cc: Joshua Rincon MD DATE: 06/01/2018 REASON FOR CONSULTATION: 1. History of right undescended testicle. 2. Right groin pain. 3. Possible right testicular lesion, per scrotal ultrasound. HISTORY OF PRESENT ILLNESS: The patient is a 18-year-old male with a history of right undescended testicle who presented from [place] intermittent right groin pain and back pain that has been going on for the last 6-7 years. The patient has had a known undescended testicle since he was age 12. He has seen several urologists in the past, who recommended undergoing an orchiopexy to bring the testicle in place, but due to lack of insurance issues, the patient has not been able to have it done. However, starting on Saturday he started to complain of intermittent right testicular pain radiating to his back from his right groin. He had a scrotal ultrasound performed in [place] on 05/30/2018 which suggested a 1.7 cm intratesticular lesion with vascular flow suspicious for a testicular neoplasm. He was referred to a surgeon down in [place] who was presently out of town for the next 1-2 weeks. Apparently, per the family, it was stressed that he needed to be seen immediately. Therefore, he came to [place] ER last night for further evaluation. In the ER, he had a repeat scrotal ultrasound done, which showed the presence of a testicle in his right inguinal canal, but no evidence of any solid or testicular lesion. CT abdomen and pelvis without contrast was also performed, which was normal as well. Urology was consulted for these findings. Currently, this morning, he continued to have some pain in his right groin. The patient and his family are concerned about possible testicular cancer. Apparently, there is a family history of testicular cancer. Denies any problems with urination including blood in his urine, burning with urination or dysuria. He is sexually active, but denies a history of sexually transmitted diseases. Denies history of kidney stones or urinary tract infections. Denies weight loss, night sweats or any flank pain at this time. HOME MEDICATIONS: None. ALLERGIES: NO KNOWN DRUG ALLERGIES. FAMILY HISTORY: Positive for testicular cancer in an uncle. Denies urolithiasis. PAST SURGICAL HISTORY: Circumcision. PAST MEDICAL HISTORY: Right undescended testicle. SOCIAL HISTORY: Denies smoking, alcohol or illicit drugs. REVIEW OF SYSTEMS: See HPI. All systems reviewed, otherwise negative. PHYSICAL EXAMINATION: VITAL SIGNS: Temperature 98.3, pulse 81, respiration rate 16, BP 122/60, saturating 96% on room air. GENERAL: He is alert and oriented x3, in no apparent distress. He is a pleasant, cooperative gentleman who appears stated age. HEENT: Normocephalic, atraumatic. Neck is supple and trachea is midline. No JVD. Eyes: No scleral icterus. Ocular muscles intact. External auditory canals and hearing normal. LUNGS: Clear to auscultation bilaterally. No wheezes, rales or rhonchi. HEART: Regular rate and rhythm. No murmurs, gallops, rubs. ABDOMEN: Soft, nontender, nondistended, positive bowel sounds. GENITOURINARY: Left testicle is normal size and consistency without mass palpable in his left hemiscrotum. Penis is circumcised. Urethral meatus is normal. His right testicle is palpable in his right inguinal canal. There was minimal cord length. I can bring the testicle down to just outside of the upper part of his scrotum, but could not bring it down into the scrotum. The testicle itself is smaller, but I did not feel any solid mass consistent with ultrasound findings. RECTAL: Exam not indicated. EXTREMITIES: Nontender. No clubbing, cyanosis or edema. NEUROLOGIC: Cranial nerves II-XII intact. Strength 5/5 all 4 extremities. SKIN: Warm and moist. No ulcers or rashes. PSYCHIATRIC: Normal affect and answers questions appropriately. LABORATORY DATA: White count 5.8, hemoglobin 14.9, hematocrit 43.3, platelet count 108. Chemistry: Sodium 141, potassium 3.0, chloride 109, bicarbonate 26.6, BUN 12, creatinine 1.04. Urine showed moderate bacteria. Scrotal ultrasound was reviewed, I agree with the radiologist. The patient has a smaller right testicle in the inguinal canal with blood flow present, but no obvious testicular lesion. CT pelvis, images reviewed, I agree with the radiologist's report, no retroperitoneal masses. ASSESSMENT AND PLAN: The patient is a 18-year-old male who presents with history of right undescended testicle, presents with right intermittent chronic right groin pain for the last 6-7 years. Recommend conservative management at this time. I do not see a testicular lesion that was seen on previous ultrasound on Saturday; however, the imaging done on admission did not show any obvious lesions in his testicle, which was consistent with his physical exam findings. Recommend he be discharged home. He can follow up with [facility]. Would likely recommend repeating the ultrasound in 1-2 weeks to see if there is any additional changes or findings. Thank you for this consult. Joshua Rincon MD EMMariah/tere , 12:41 PM , 12:53 PM
[2018-06-01 16:25] LABS: % Iron Saturation 48.8 % (20-50)
--- NOTE | 2018-06-01 16:39 | MB ---
cc: Shivam Garcia MD DATE: 06/01/2018 REASON FOR CONSULTATION: Hematology consulted to render an opinion on patient with thrombocytopenia. HISTORY OF PRESENT ILLNESS: The patient is a 18-year-old male who presented to the hospital with right groin pain. He has history of undescended testicle in the right inguinal canal. He started having pain when he was 12 years old, he stated the pain stopped 1 year when he was 15 years old, but lately he has increased pain again. He has no insurance and was not able to see a urologist. He went to [facility] yesterday and was told that there was no surgeon available for 2 weeks. He was told to come to [place]. States the pain is severe, grading it a 7/10. It has been progressively getting worse. On presentation, his platelet count was 133,000. This morning it trended down 108,000. Hematology consulted for further evaluation. PAST MEDICAL HISTORY: Undescended right testis. PAST SURGICAL HISTORY: None. FAMILY HISTORY: Four sisters, all healthy. No hematologic disorders in family. SOCIAL HISTORY: Smoked marijuana. He denies tobacco or alcohol use. ALLERGIES: NO KNOWN DRUG ALLERGIES. CURRENT MEDICATION: Joan-Colace. REVIEW OF SYSTEMS: CONSTITUTIONAL: Negative. EYES: Negative. ENT: Negative. CARDIOVASCULAR: Negative. RESPIRATORY: Negative. GASTROINTESTINAL: As above. GENITOURINARY: As above. MUSCULOSKELETAL: Negative. HEMATOLOGIC: As above. ENDOCRINE: Negative. DERMATOLOGIC: Negative. PSYCHIATRIC: Negative. NEUROLOGIC: Negative. PHYSICAL EXAMINATION: VITAL SIGNS: Temperature 98.3, blood pressure 122/60, O2 saturation 96% on room air. GENERAL: He is alert, oriented x3, in no acute distress. He is very thin. HEENT: Atraumatic, normocephalic. Pupils are equal, round, reactive to light. Extraocular muscles are intact. No scleral icterus. Oropharynx dry mucosa. No lesion, no thrush. No mucositis. NECK: No thyromegaly. No palpable mass. LYMPHATIC: No palpable cervical, clavicular, axillary or inguinal lymph nodes. HEART: Regular S1, S2. No murmur. LUNGS: Clear to auscultation bilaterally. ABDOMEN: Soft, a little tender in the right groin area. No rebound or rigidity. Positive bowel sounds. EXTREMITIES: No cyanosis, clubbing or edema. BACK: No paravertebral tenderness. SKIN: No rash. NEUROLOGIC: Nonfocal. LABORATORY DATA: Data of 05/31/2018 and 06/01/2018 were reviewed. ASSESSMENT AND PLAN: 1. Mild thrombocytopenia of unknown chronicity. He presented yesterday with platelet count slightly low at 32,000. This morning, platelet count trended down to 108,000. His white blood cell count and hemoglobin normal. This could be a transient bone marrow suppression. Clinically, he has no bleeding or bruising. There is also a possibility this could be a chronic immune thrombocytopenia. We will check his iron studies and vitamin study. We will also check a DIC panel. We will have pathology review his smear. Continue to monitor CBC for now. 2. Right groin pain due to undescended testes. CT scan and ultrasound showed the right testis is in the right inguinal canal with a small left varicocele. He has had intermittent pain for several years. He is awaiting a urology evaluation. RECOMMENDATIONS: 1. Pursue laboratory evaluation outlined above. 2. Monitor CBC. 3. Further recommendations will depend on the above evaluation. Thank you, Dr. [place], for asking me to see this patient. MD AARON Montoya/tere , 01:34 PM , 01:44 PM PEG
[2018-06-01 16:50] LABS: Folate 9.9 ng/mL (3.1-17.5)
[2018-06-02 04:06] VITALS: TEMP 98.2
[2018-06-02 06:09] LABS: Baso % (Auto) 0.5 % (0.0-2.0); Eos # (Auto) 0.1 th/mm3 (0.0-0.4); Eos % (Auto) 1.8 % (0.0-4.0); Hematocrit 43.3 % (39.0-51.0); Hemoglobin 15.1 gm/dL (13.0-17.0); Lymph # (Auto) 2.6 th/mm3 (1.0-4.8); Lymph % (Auto) 37.3 % (9.0-44.0); Mean Corpuscular HGB Conc 34.9 % (32.0-36.0); Mean Corpuscular Hemoglobin 31.9 pg (27.0-34.0); Mean Corpuscular Volume 91.5 fL (80.0-100.0); Mean Platelet Volume 11.5 fL (7.0-11.0); Mono # (Auto) 0.5 th/mm3 (0.0-0.9); Mono % (Auto) 6.6 % (0.0-8.0); Neut # (Auto) 3.8 th/mm3 (1.8-7.7); Neut % (Auto) 53.8 % (16.0-70.0); Platelet Count 107 th/mm3 (150-450); Red Blood Count 4.73 mil/mm3 (4.50-5.90); Red Cell Distribution Width 12.3 % (11.6-17.2)
[2018-06-02 06:36] LABS: Alanine Aminotransferase 14 U/L (9-52); Alkaline Phosphatase 88 U/L (45-117); Anion Gap 6 meq/L (5-15); Aspartate Aminotransferase 10 U/L (15-39); Blood Urea Nitrogen 11 mg/dL (7-18); Calcium 8.8 mg/dL (8.5-10.1); Carbon Dioxide 28.6 meq/L (21.0-32.0); Chloride 106 meq/L (98-107); Glomerular Filtration Rate Greater Than 89 mL/min (>89); Glucose,Random 81 mg/dL (74-106); Potassium 3.8 meq/L (3.5-5.1); Sodium 141 meq/L (136-145); Total Protein 6.8 g/dL (6.4-8.2)
[2018-06-02 07:21] VITALS: BP 120/67; PULSE 86; RESP 16; O2SAT 99
[2018-06-02] MEDS: Sod Chloride 0.9% Inj 1,000 ML IV.CONT SCH (08:15)
[2018-06-02] MEDS: Senna/Docusate Sodium 8.6/50 MG Tablet PO SCH (09:04)
--- NOTE | 2018-06-02 09:27 | P.DS ---
Date of admission: 06/01/18 01:08 Primary care physician: No Primary Care Physician Attending physician on discharge: Amanda Birmingham Anticipated date of discharge: 06/02/18 Brief History from admission: This is a 18-year-old male with PMH Undescended Testes who presented to the ER with complaints of abdominal pain. States he was seen at [facility] yesterday for similar complaints, had CT Abdomen/Pelvis and Abdominal US showing "mass on the intestines". Per father at bedside, they were told the surgeon was on vacation for 2wks, and decided to come here for further evaluation. Father reports pt has been evaluated for surgery for undescended testes since the age of 12yrs, however no surgical intervention done. Pt reports intermittent abdominal pain for several years, now progressively worse over the last 1wk. Pain is sharp, moderate-severe, 7-8/10, non-radiating. Denies fever or chills. On arrival, BP 140/65, HR 101, O2 sat 99% on RA, Afebrile. CBC unremarkable except for platelets 133, no previous labs for comparison. Creatinine 1.49. INR 1.2. UA negative for UTI. Scrotal US undescended right testicle and right inguinal canal with markedly decreased color Doppler flow. CT Abdomen/Pelvis no acute findings, normal appendix, undescended right testicle and right inguinal canal, left varicocele. Patient update on day of discharge: Pt continues to have some RLQ and right flank discomfort but improved with analgesics. Denies nausea or vomiting. Now with some constipation secondary to pain medicines. He was evaluated by urology who recommended following with [facility] as an outpatient. He was also evaluated by hematology for thrombocytopenia. Patient endorses bleeding gums every time he brushes his teeth and states this has been going on since he was a child. He denies epistaxis. Denies family history of bleeding disorders. He is agreeable to being discharged today. Discussed with sister on the phone. DS: Diagnosis - Discharge Diagnosis (1) Undescended testes Status: Chronic (2) Thrombocytopenia Status: Chronic DS: Medications - Discharge Medications Prescriptions: hydrocodone-acetaminophen 1 tab PO Q4H PRN #18 tab PRN Reason: Acute Pain ketorolac 10 mg PO Q6H PRN #12 tab PRN Reason: Pain DS: Summary Hospital Course: 18-year-old -[place] male with known right inguinal canal crypt cortisone admitted on 05/31 for intractable pain. There was supposedly some question of possible testicular cancer seen on ultrasound when he went to [facility] but since the urologist was on vacation he was advised to seek medical care elsewhere. Ultrasound and CT scan of the abdomen showed right undescended testicle in the inguinal canal with decreased Doppler flow. There was no signs of a mass. Urology was consulted who recommended outpatient follow -up. During his hospitalization he was also noted to have thrombocytopenia with platelets around 108. 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 The patient was advised to be cautious about easy bleeding but no further intervention was needed. He was discharged in stable condition on 06/02 with a short course of Lortab for pain control. [facility] Prescription Drug Monitoring Database has been queried and verified prior to prescribing the controlled substance. Acute pain exception. This patient has normal, predicted, physiological, and time-limited response to an adverse stimulus associated with right after cortisone as described above. There is a lack of alternative treatment options other than to include the prescribed narcotic treatment for this condition. - Time Spent with Patient Total time spent providing and/or coordinating discharge services: Less than 30 minutes - Quality: VTE Deep Vein Thrombosis/Pulmonary Embolism Present on Admission: No Exam Vital signs: Vital Signs 06/01/18 12:00 06/01/18 16:00 06/01/18 20:00 Temperature 98.3 F 97.7 F 98.0 F Pulse Rate 81 84 74 Respiratory Rate 16 16 16 Blood Pressure 122/60 119/60 137/64 Pulse Oximetry 96 99 98 06/01/18 21:20 06/01/18 23:56 06/02/18 04:00 Temperature 98.6 F 98.2 F Pulse Rate 65 56 L Respiratory Rate 16 16 18 Blood Pressure 116/59 L 99/50 L Pulse Oximetry 95 97 06/02/18 07:18 Temperature Pulse Rate 86 Respiratory Rate 16 Blood Pressure 120/67 Pulse Oximetry 99 Intake & Output 06/01/18 06/02/18 06/02/18 18:59 06:59 18:59 Intake Total 1000 / 1000 Output Total 320 / 320 Balance 1000 / 1000 -320 / -320 Weight 61.34 kg Intake: IV 1000 / 1000 NS Inj 1,000 ML @ 100 mls/hr IV 1000 / 1000 .CONT .Q10H BILLIE Rx#:[id number] Output: Urine 320 / 320 Other: # Voids 8 Date of Last Bowel Movement 06/01/18 Narrative: GENERAL: WN, WD male resting in bed in NAD. SKIN: Warm and dry. HEENT: AT/NC. Pupils equal and round. MMM. NECK: Supple no tender LAD or JVD. CHEST: Left nipple with firm ~1.5 cm, nontender nodule with no overlying erythema. Right nipple unremarkable. HEART: RRR no m/r/g. LUNGS: CTAB without wheezes or crackles. ABDOMEN: +BS, soft, RLQ and right flank TTP. EXTREMITIES: No LE edema. NEURO: Awake and alert. Results Procedures completed during hospitalization: None Labs on day of discharge: Labs from last 24 hours 06/02/18 06/02/18 06/01/18 03:30 03:30 13:49 WBC 7.0 RBC 4.73 Hgb 15.1 Hct 43.3 MCV 91.5 MCH 31.9 MCHC 34.9 RDW 12.3 Plt Count 107 L MPV 11.5 H Neut % (Auto) 53.8 Lymph % (Auto) 37.3 [place] % (Auto) 6.6 Eos % (Auto) 1.8 Baso % (Auto) 0.5 Neut # (Auto) 3.8 Lymph # (Auto) 2.6 [place] # (Auto) 0.5 Eos # (Auto) 0.1 Baso # (Auto) 0.0 WBC Differential . Differential Comment Auto diff final Smear Path Review Fibrinogen Sodium 141 Potassium 3.8 Chloride 106 Carbon Dioxide 28.6 Anion Gap 6 BUN 11 Creatinine 1.14 Estimated GFR Greater than 89 Random Glucose 81 Calcium 8.8 Iron 129 TIBC 265 % Saturation 48.8 Ferritin 44 Total Bilirubin 0.5 AST 10 L ALT 14 Alkaline Phosphatase 88 Lactate Dehydrogenase 159 Total Protein 6.8 D Albumin 4.0 D Tumor Marker HCG Vitamin B12 411 Folate 9.9 Estradiol High Sensitv Luteinizing Hormone Total Testosterone 06/01/18 06/01/18 06/01/18 13:49 13:49 13:49 WBC RBC Hgb Hct MCV MCH MCHC RDW Plt Count MPV Neut % (Auto) Lymph % (Auto) [place] % (Auto) Eos % (Auto) Baso % (Auto) Neut # (Auto) Lymph # (Auto) [place] # (Auto) Eos # (Auto) Baso # (Auto) WBC Differential Differential Comment Smear Path Review Fibrinogen 136 L Sodium Potassium Chloride Carbon Dioxide Anion Gap BUN Creatinine Estimated GFR Random Glucose Calcium Iron TIBC % Saturation Ferritin Total Bilirubin AST ALT Alkaline Phosphatase Lactate Dehydrogenase Total Protein Albumin Tumor Marker HCG Vitamin B12 Folate Estradiol High Sensitv Pending Luteinizing Hormone Total Testosterone Pending 06/01/18 06/01/18 06/01/18 13:49 10:30 10:30 WBC 5.8 RBC 4.70 Hgb 14.9 D Hct 43.3 MCV 92.0 MCH 31.7 MCHC 34.5 RDW 12.2 Plt Count 108 L MPV 11.1 H Neut % (Auto) Lymph % (Auto) [place] % (Auto) Eos % (Auto) Baso % (Auto) Neut # (Auto) Lymph # (Auto) [place] # (Auto) Eos # (Auto) Baso # (Auto) WBC Differential Differential Comment Smear Path Review Fibrinogen Sodium 141 Potassium 3.8 Chloride 109 H Carbon Dioxide 26.6 Anion Gap 5 BUN 12 Creatinine 1.04 Estimated GFR Greater than 89 Random Glucose 84 Calcium 8.4 L D Iron TIBC % Saturation Ferritin Total Bilirubin AST ALT Alkaline Phosphatase Lactate Dehydrogenase Total Protein Albumin Tumor Marker HCG Less than 1 Vitamin B12 Folate Estradiol High Sensitv Luteinizing Hormone 2.2 Total Testosterone - Impressions ITS Impressions Scrotum Ultrasound 05/31/18 20:36 CONCLUSION: 1. Undescended right testicle identified in the right inguinal canal with markedly decreased color Doppler flow. The finding of decrease to no color Doppler flow is age-indeterminate. 2. Small varicocele noted on the left. Abdomen/Pelvis CT 05/31/18 22:43 CONCLUSION: 1. No acute findings. Normal CT appearance of the appendix. 2. Undescended right testicle present in the right inguinal canal. Left-sided varicocele. Discharge Plan - Discharge Disposition Patient Disposition: 01 Discharge Home - Discharge Condition Condition: Stable - Discharge Order Discharge Orders: Discharge Order (Routine); Ordered 06/02/18 Ordered By: Amanda Birmingham - Discharge Details Anticipated Discharge Date: 06/02/18 - Physicians Team Primary Care Provider: Primary Care Drake,Alka Attending Provider: Amanda Birmingham Other Providers: Joshua Rincon MD ; Shivam Garcia MD
--- NOTE | 2018-06-02 16:22 | P.PNONC ---
Subjective Interval history: Late entry. Saw patient in the morning. Right groin soreness stable. No bleeding reported. No CP/SOB. Afebrile. Objective Vital Signs/Intake & Output: Vital Signs 06/01/18 20:00 06/01/18 21:20 06/01/18 23:56 Temperature 98.0 F 98.6 F Pulse Rate 74 65 Respiratory Rate 16 16 16 Blood Pressure 137/64 116/59 L Pulse Oximetry 98 95 06/02/18 04:00 06/02/18 07:18 Temperature 98.2 F Pulse Rate 56 L 86 Respiratory Rate 18 16 Blood Pressure 99/50 L 120/67 Pulse Oximetry 97 99 Intake & Output 06/01/18 06/02/18 06/02/18 18:59 06:59 18:59 Intake Total 1000 / 1000 600 / 600 Output Total 320 / 320 Balance 1000 / 1000 -320 / -320 600 / 600 Weight 61.34 kg Intake: IV 1000 / 1000 600 / 600 NS Inj 1,000 ML @ 100 mls/hr IV 1000 / 1000 600 / 600 .CONT .Q10H BILLIE Rx#:[id number] Output: Urine 320 / 320 Other: # Voids 8 Date of Last Bowel Movement 06/01/18 06/01/18 Result Diagrams: 06/02/18 03:30 06/02/18 03:30 Laboratory Results: Laboratory Results - last 24 hr 06/01/18 06/01/18 06/01/18 13:49 13:49 13:49 WBC RBC Hgb Hct MCV MCH MCHC RDW Plt Count MPV Neut % (Auto) Lymph % (Auto) [place] % (Auto) Eos % (Auto) Baso % (Auto) Neut # (Auto) Lymph # (Auto) [place] # (Auto) Eos # (Auto) Baso # (Auto) WBC Differential Differential Comment Smear Path Review Fibrinogen 136 L Sodium Potassium Chloride Carbon Dioxide Anion Gap BUN Creatinine Estimated GFR Random Glucose Calcium Iron TIBC % Saturation Ferritin Total Bilirubin AST ALT Alkaline Phosphatase Lactate Dehydrogenase Total Protein Albumin Tumor Marker HCG Less than 1 Vitamin B12 Folate Luteinizing Hormone 2.2 06/01/18 06/02/18 06/02/18 13:49 03:30 03:30 WBC 7.0 RBC 4.73 Hgb 15.1 Hct 43.3 MCV 91.5 MCH 31.9 MCHC 34.9 RDW 12.3 Plt Count 107 L MPV 11.5 H Neut % (Auto) 53.8 Lymph % (Auto) 37.3 [place] % (Auto) 6.6 Eos % (Auto) 1.8 Baso % (Auto) 0.5 Neut # (Auto) 3.8 Lymph # (Auto) 2.6 [place] # (Auto) 0.5 Eos # (Auto) 0.1 Baso # (Auto) 0.0 WBC Differential . Differential Comment Auto diff final Smear Path Review Fibrinogen Sodium 141 Potassium 3.8 Chloride 106 Carbon Dioxide 28.6 Anion Gap 6 BUN 11 Creatinine 1.14 Estimated GFR Greater than 89 Random Glucose 81 Calcium 8.8 Iron 129 TIBC 265 % Saturation 48.8 Ferritin 44 Total Bilirubin 0.5 AST 10 L ALT 14 Alkaline Phosphatase 88 Lactate Dehydrogenase 159 Total Protein 6.8 D Albumin 4.0 D Tumor Marker HCG Vitamin B12 411 Folate 9.9 Luteinizing Hormone Objective Remarks: GENERAL: Well-nourished, well-developed patient. Thin SKIN: Warm and dry. HEAD: Normocephalic. EYES: No scleral icterus. No injection or drainage. NECK: Supple, trachea midline. No JVD or lymphadenopathy. LYMPHATIC: No adenopathy. CARDIOVASCULAR: Regular rate and rhythm without murmurs. RESPIRATORY: Breath sounds equal bilaterally. No accessory muscle use. GASTROINTESTINAL: Abdomen soft, tender right inguinal area. EXTREMITIES: No cyanosis, or edema. MUSCULOSKELETAL: Adequate muscle tone. NEUROLOGICAL: No obvious focal deficit. Awake, alert, and oriented x3. PSYCHIATRIC: Appropriate mood and affect; insight and judgment normal. Assessment/Plan - Plan 1. Mild thrombocytopenia of unknown chronicity. He presented with platelet count slightly low at 132,000. the platelet trended down to 108, 000. His white blood cell count and hemoglobin normal. Fibrinogen slightly low. No vitamin or iron deficiency. This could be a transient bone marrow suppression and consumptive process. Clinically, he has no bleeding or bruising. There is also a possibility this could be a chronic immune thrombocytopenia. I told patient to f/u with his PCP. 2. Right groin pain due to undescended testes. CT scan and ultrasound showed the right testis is in the right inguinal canal with a small left varicocele. He has had intermittent pain for several years. He will f/u with urology. RECOMMENDATIONS: 1. F/u with PCP to monitor CBC 2. F/u Urology.
[2018-06-05 10:07] LABS: Estradiol 21 pg/mL (10-40); Testosterone,Total 332 ng/dL (240-950)
== END 2018-06-02 10:23 | disposition home or self-care (01) ==
LOC: NEPC 19:41 → NEDA 19:41 → NEPFCDU 06-01 02:32
PROVIDERS: ADMIT Family Medicine; ATTEND Family Medicine